=== PATIENT | male | born 1940 | race Caucasian/White ===

== ENCOUNTER 2022-04-20 18:24 | Emergency (ER) | payer MEDICARE, MEDICAID ==
[2022-04-20 19:16] LABS: BASO % 0.5 % (0.0-1.0); EOS # 0.4 10*3/uL (0.0-0.4); EOS % 7.7 % (1.0-4.0); HEMATOCRIT 42.5 % (42.0-52.0); LYMPH # 1.8 10*3/uL (1.3-4.4); MEAN CELL VOLUME 89.7 fl (80.0-94.0); MEAN CORPUSCULAR HGB 29.5 pg (27.0-31.0); MEAN CORPUSCULAR HGB CONC 32.9 g/dl (33.0-37.0); MONO # 0.5 10*3/uL (0.1-1.0); MONO % 9.3 % (3.0-9.0); NEUT # 2.8 10*3/uL (2.3-7.9); NEUT % 50.3 % (47.0-73.0); PLATELET COUNT AUTOMATED 225 10*3/uL (130-400); RED BLOOD COUNT 4.74 10*6/uL (4.50-5.90); RED CELL DISTRI WIDTH 13.1 % (0-14.5); WHITE BLOOD COUNT 5.6 10*3/uL (4.8-10.8)
[2022-04-20 19:23] LABS: BILIRUBIN Negative (Negative); BLOOD Negative (Negative); CLARITY Clear (Clear); COLOR Yellow (Yellow); GLUCOSE Negative (Negative); KETONE Trace (Negative); LEUKO ESTERASE Negative (Negative); NITRITE Negative (Negative); PH 6.5 (4.5-8.0); SPECIFIC GRAVITY >= 1.030 (1.001-1.030)
[2022-04-20 19:28] LABS: BACTERIA 1+; EPITHELIAL CELLS 0-2; HYALINE CAST 0-2; MUCOUS 2+; WBC 0-2 wbc/hpf (0-5)
[2022-04-20 19:31] LABS: ACT PARTIAL THROMBO TIME 26.2 SECONDS (20.0-32.1)
[2022-04-20 19:32] LABS: ALKALINE PHOSPHATASE 107 U/L (45-117); BUN 27 mg/dl (7-24); CHLORIDE 109 mmol/L (98-107); CREATININE 1.25 mg/dL (0.70-1.30); SGOT/AST 15 IU/L (3-35); SGPT/ALT 11 U/L (12-78); SODIUM 143 mmol/L (136-145); TOTAL PROTEIN 6.5 gm/dL (6.4-8.2)
[2022-04-20 19:33] LABS: URINE AMPHETAMINES < 1000 (1000ng/ml); URINE BARBITURATES < 200 (200ng/ml); URINE BENZODIAZEPINES < 200 (200ng/ml); URINE CANNABINOIDS (THC) < 50 (50ng/ml); URINE COCAINE < 300 (300ng/ml); URINE METHADONE < 300 (300ng/ml); URINE OPIATES < 300 (300ng/ml)
[2022-04-20 19:33] LABS: ETHYL ALCOHOL < 3.0 mg/dl (<3)
[2022-04-20 19:34] LABS: URINE PHENCYCLIDINE < 25 (25ng/ml)
[2022-04-20] MEDS ORDERED: BENZONATATE100 M1 PO (21:57)
[2022-04-20] MEDS ORDERED: VISTARIL50 MG PO (21:58)
[2022-04-20] MEDS ORDERED: MIRALAX POWDER17 G1 PO (21:59)
[2022-04-20] MEDS ORDERED: DEPAKOTE250 MG PO (22:06)
[2022-04-20] MEDS ORDERED: TAMSULOSIN HCL0.4 MG PO (22:07)
[2022-04-20] MEDS ORDERED: MELATONIN5 M7 PO (22:09)
[2022-04-20] MEDS ORDERED: PANTOPRAZOLE SO40 MG PO (22:17)
[2022-04-20] MEDS ORDERED: EXELON1 EAC1 T (22:17)
[2022-04-20] MEDS ORDERED: ZESTRIL10 MG PO (22:18)
[2022-04-20] MEDS ORDERED: CETIRIZINE5 MG PO (22:19)
== END 2022-04-20 22:58 | disposition home or self-care (01) ==
LOC: ED 18:24
PROVIDERS: Emergency Medicine
DX: F91.9 Conduct disorder, unspecified (principal); Z20.822 Contact with and (suspected) exposure to COVID-19

== ENCOUNTER 2022-04-20 20:17 | Inpatient (IN) | payer MEDICARE, MEDICAID ==
[~2022-04-20] VITALS: Ht 157.4 cm; Wt 69.1 kg
[2022-04-20 20:40] VITALS: BP 140/76
[2022-04-20] MEDS ORDERED: BENZONATATE100 M1 PO (21:57)
[2022-04-20] MEDS ORDERED: VISTARIL50 MG PO (21:58)
[2022-04-20] MEDS ORDERED: MIRALAX POWDER17 G1 PO (21:59)
[2022-04-20] MEDS ORDERED: DEPAKOTE250 MG PO (22:06)
[2022-04-20] MEDS ORDERED: TAMSULOSIN HCL0.4 MG PO (22:07)
[2022-04-20] MEDS ORDERED: MELATONIN5 M7 PO (22:09)
[2022-04-20] MEDS ORDERED: EXELON1 EAC1 T (22:17)
[2022-04-20] MEDS ORDERED: PANTOPRAZOLE SO40 MG PO (22:17)
[2022-04-20] MEDS ORDERED: ZESTRIL10 MG PO (22:18)
[2022-04-20] MEDS ORDERED: CETIRIZINE5 MG PO (22:19)
[2022-04-21 06:24] LABS: BASO % 0.7 % (0.0-1.0); EOS # 0.5 10*3/uL (0.0-0.4); HEMATOCRIT 42.5 % (42.0-52.0); LYMPH # 1.8 10*3/uL (1.3-4.4); LYMPH % 33.4 % (27.0-41.0); MEAN CELL VOLUME 88.9 fl (80.0-94.0); MEAN CORPUSCULAR HGB 29.3 pg (27.0-31.0); MEAN CORPUSCULAR HGB CONC 32.9 g/dl (33.0-37.0); MEAN PLATELET VOLUME 9.8 fl (9.6-12.3); MONO # 0.6 10*3/uL (0.1-1.0); MONO % 10.3 % (3.0-9.0); NEUT # 2.5 10*3/uL (2.3-7.9); NEUT % 45.9 % (47.0-73.0); PLATELET COUNT AUTOMATED 227 10*3/uL (130-400); RED BLOOD COUNT 4.78 10*6/uL (4.50-5.90); RED CELL DISTRI WIDTH 12.6 % (0-14.5); WHITE BLOOD COUNT 5.5 10*3/uL (4.8-10.8)
[2022-04-21 06:38] LABS: BUN 24 mg/dl (7-24); CHLORIDE 110 mmol/L (98-107); CHOLESTEROL 259 mg/dL (<200); CREATININE 1.02 mg/dL (0.70-1.30); POTASSIUM 4.1 mmol/L (3.5-5.1); SGOT/AST 16 IU/L (3-35); SGPT/ALT 10 U/L (12-78); SODIUM 143 mmol/L (136-145); TRIGLYCERIDES 116 mg/dl (<150)
[2022-04-21 06:45] LABS: ALKALINE PHOSPHATASE 87 U/L (45-117); LDL CHOLESTEROL 191 mg/dL (9-159); VALPROIC ACID (DEPAKENE) 35.2 ug/ml (50-100)
[2022-04-21 07:29] VITALS: BP 138/88
[2022-04-21 07:30] VITALS: BP 138/88
[2022-04-21 09:02] LABS: VITAMIN D, 25-HYDROXY 21.6 ng/mL (30-100)
[2022-04-21 12:05] VITALS: BP 138/88
[2022-04-21 18:43] VITALS: BP 117/62
[2022-04-22 08:05] VITALS: BP 111/67
[2022-04-22 20:00] VITALS: BP 140/76
[2022-04-23 08:17] VITALS: BP 138/60
[2022-04-23 20:00] VITALS: BP 134/62
[2022-04-24 07:47] VITALS: BP 135/66
[2022-04-24 20:00] VITALS: BP 98/49
[2022-04-25 07:50] VITALS: BP 134/81
[2022-04-25 20:00] VITALS: BP 108/73
[2022-04-26 08:00] VITALS: BP 147/78
[2022-04-26 20:00] VITALS: BP 108/52
[2022-04-27 05:51] LABS: BUN 25 mg/dl (7-24); CHLORIDE 111 mmol/L (98-107); CREATININE 1.32 mg/dL (0.70-1.30); POTASSIUM 4.6 mmol/L (3.5-5.1); SGOT/AST 34 IU/L (3-35); SGPT/ALT 36 U/L (12-78); SODIUM 144 mmol/L (136-145); TOTAL PROTEIN 5.5 gm/dL (6.4-8.2)
[2022-04-27 05:52] LABS: ALKALINE PHOSPHATASE 101 U/L (45-117)
[2022-04-27 08:01] VITALS: BP 120/72
[2022-04-27 20:00] VITALS: BP 112/60
[2022-04-28 07:46] VITALS: BP 119/62
[2022-04-28 20:00] VITALS: BP 101/60
[2022-04-29 07:35] VITALS: BP 151/79
[2022-04-29] MEDS ORDERED: PALIPERIDONE E1.5 MG PO (08:42)
[2022-04-29] MEDS ORDERED: RIVASTIGMINE1 EAC2 T (08:42)
[2022-04-29] MEDS ORDERED: VITAMIN D3125 MC1 PO (08:42)
[2022-04-29] MEDS ORDERED: MEMANTINE HCL10 MG PO (08:42)
[2022-04-29] MEDS ORDERED: B121000 MCG/1 IM (08:42)
[2022-04-29] MEDS ORDERED: MIRTAZAPINE15 M2 PO (08:42)
== END 2022-04-29 12:15 | DRG 883 ==
LOC: 3N 20:17
PROVIDERS: Nurse Practitioner Women's Health; ADMIT Psychiatry & Neurology Psychiatry; ATTEND Psychiatry & Neurology Psychiatry
DX: F63.81 Intermittent explosive disorder (principal); N17.0 Acute kidney failure with tubular necrosis; E44.0 Moderate protein-calorie malnutrition; G30.9 Alzheimer's disease, unspecified; F02.80 Dementia in other diseases classified elsewhere, unspecified severity, without behavioral disturbance, psychotic disturbance, mood disturbance, and anxiety; R82.71 Bacteriuria; K21.9 Gastro-esophageal reflux disease without esophagitis; Z20.822 Contact with and (suspected) exposure to COVID-19; N40.0 Benign prostatic hyperplasia without lower urinary tract symptoms; I10 Essential (primary) hypertension; E87.8 Other disorders of electrolyte and fluid balance, not elsewhere classified; R73.9 Hyperglycemia, unspecified; J30.2 Other seasonal allergic rhinitis; E55.9 Vitamin D deficiency, unspecified; Z68.27 Body mass index [BMI] 27.0-27.9, adult